=== PATIENT | female | born 1960 | race Caucasian/White ===

== ENCOUNTER 2017-02-08 11:25 | Emergency (ER) | payer SELFPAY ==
[~2017-02-08] VITALS: Ht 172.7 cm; Wt 63.9 kg
[~2017-02-08 11:25] MED LIST: CALC-51; LXPUNK; MULT-506 PO; SNG10 PO
[2017-02-08 11:27] VITALS: Ht 172.7 cm; Wt 63.9 kg
[2017-02-08 12:30] LABS: BASO % 0.5 %; BASO ABS # 0.03 K/uL (0-0.2); COMPLETE YES; EOS % 0.3 %; HEMATOCRIT 40.9 % (37-47); IG% 0.2 %; LYMPH % 11.8 %; LYMPH ABS # 0.71 K/uL (1.2-3.4); MEAN CELL VOLUME 94.2 fL (80-100); MEAN CORPUSCULAR HEMOGLOBIN 31.8 pg (25-34); MEAN CORPUSCULAR HGB CONC 33.7 g/dl (32-36); MEAN PLATELET VOLUME 9.1 fL (7.4-10.4); MONO % 3.3 %; NEUT % 83.9 %; PLATELET COUNT 232 K/uL (130-400); RED BLOOD COUNT 4.34 M/uL (4.2-5.4); WHITE BLOOD COUNT 6.02 K/uL (4.8-10.8)
[2017-02-08 12:47] LABS: URINE APPEARANCE CLEAR (CLEAR); URINE BILIRUBIN NEG (NEG); URINE COLOR YELLOW; URINE EPITHELIAL CELL AUTO >30 /lpf (0-5); URINE NITRITE NEG (NEG); URINE PH 5.5 (4.5-7.5); URINE SPECIFIC GRAVITY 1.013 (1.000-1.030); UROBILINOGEN NEG (NEG); ZZUR CULT IF INDIC CLEAN CATCH NO
[2017-02-08 12:49] LABS: MANUAL MICROSCOPIC REQUIRED? NO; REVIEW REQ? NO
[2017-02-08 12:50] LABS: BUN/CREATININE RATIO 20.4 (10-20); CREATININE 0.71 mg/dl (0.60-1.20); POTASSIUM 3.5 mmol/L (3.5-5.1)
[2017-02-08 13:01] LABS: ALB/GLOB RATIO 1.5 (0.9-2); THYROID STIMULATING HORMONE 0.996 uIu/ml (0.300-4.500)
[2017-02-08 13:09] LABS: ACETAMINOPHEN < 2 ug/ml (10-30)
[2017-02-08 13:29] LABS: BENZODIAZEPINE, URINE NEG (NEG); COCAINE,URINE NEG (NEG); PHENCYCLIDINE, URINE NEG (NEG)
[2017-02-08 15:00] VITALS: TEMP 36.9
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
[2017-02-08 16:18] VITALS: BP 112/74; PULSE 60; O2SAT 99
== END 2017-02-08 16:19 ==
LOC: C.EDB 11:27 → C.EDA 16:19
DX: F32.9 Major depressive disorder, single episode, unspecified (principal); R45.851 Suicidal ideations; Z87.01 Personal history of pneumonia (recurrent)